=== PATIENT | female | born 1975 | race Caucasian/White ===

== ENCOUNTER 2021-12-06 09:22 | Outpatient (CLI) | payer OTHER, SELFPAY ==
[2021-12-06 12:26] LABS: Absolute Lymphocyte Count 2.43 X10^3/uL (0.83-4.51); Absolute Neutrophil Count 4.7 X10^3/uL (2.0-7.7); Basophil# 0.05 X10^3/uL; Basophil% 0.6 % (0-1); Eosinophil# 0.06 X10^3/uL; Eosinophils% 0.8 % (0-5); Hematocrit 37.9 % (37-47); Hemoglobin 11.6 g/dL (12.0-15.0); Lymphocyte # 2.43 X10^3/ul (0.83-4.51); Lymphocyte % 30.7 % (19-41); Mean Corp Hgb Conc 30.6 g/dL (32-36); Mean Corpuscular Hgb 24.7 pg (27.0-32.0); Mean Corpuscular Volume 80.6 fL (81-99); Mean Platelet Vol. 10.8 fl (6.2-12.0); Monocyte# 0.71 X10^3/uL; NRBC Flagged by Analyzer 0 % (0-5); Neutrophil # 4.65 X10^3/uL (2.7-7.7); Neutrophil % 58.6 % (47-70); Platelet Count 369 K/mm3 (150-450); RBC Distribution Width CV 16.4 % (11.6-14.6); RBC Distribution Width SD 47.9 fl (35.1-43.9); White Blood Count 7.9 K/mm3 (4.4-11.0)
[2021-12-06 12:42] LABS: ALB/GLOB Ratio 0.8 RATIO (0.9-2.4); AST(SGOT) 15 U/L (15-37); Alanine Aminotransfer ALT/SGPT 22 U/L (13-56); Albumin, Serum 3.3 g/dL (3.2-5.0); Alkaline Phosphatase 93 U/L (45-117); Anion Gap 5 (5-15); BUN 10 mg/dL (7-18); BUN/Creat Ratio 13.9 RATIO (10-20); Calcium,Total 8.8 mg/dL (8.5-10.1); Chloride 109 mmol/L (98-107); Cholesterol 163 mg/dL (200); Creatinine, Serum 0.72 mg/dL (0.55-1.02); EST Glomerular Filtration Rate 93 mL/min (>60); Est Glom Filt Rate - Afr Amer 112 mL/min (>60); Glucose 100 mg/dL (74-106); High Density Lipoprotein 52 mg/dL; Potassium 4.3 mmol/L (3.5-5.1); Protein, Total 7.3 g/dL (6.4-8.2); Sodium Level 139 mmol/L (136-145); Triglycerides 100 mg/dL; Very Low Density Lipoprotein 20 mg/dL (5-40)
[2021-12-09 11:20] LABS: Ferritin 5 ng/mL (8-252); Iron 18 ug/dL (50-170); Iron Binding Capacity,Total 411 ug/dL (250-450)
== END 2021-12-06 23:59 | disposition short-term general hospital (02) ==
LOC: BIMLAB 09:23
PROVIDERS: PCP Internal Medicine; Referring Provider Internal Medicine; Visit Provider Internal Medicine
DX: Z00.00 Encounter for general adult medical examination without abnormal findings (principal); D64.9 Anemia, unspecified
CPT/HCPCS: 36415; 80053; 80061; 82728; 83540; 83550; 85025

== ENCOUNTER 2022-02-26 11:00 | Outpatient (CLI) | payer OTHER, SELFPAY ==
[2022-03-05 12:33] LABS: HPV APTIMA, High Risk Negative (Negative)
== END 2022-02-26 23:59 | disposition home or self-care (01) ==
LOC: LABSPEC 02-27 11:01
PROVIDERS: PCP Internal Medicine; Referring Provider Nurse Practitioner Women's Health; Visit Provider Nurse Practitioner Women's Health
DX: Z12.4 Encounter for screening for malignant neoplasm of cervix (principal)
CPT/HCPCS: 87624; 88175; G0145

== ENCOUNTER → 2022-03-11 | Outpatient (CLI) | payer OTHER, SELFPAY ==
--- NOTE | 2022-03-11 12:22 | US_ITS ---
EXAM: US pelvis, transabdominal and transvaginal.. HISTORY: menorrhagia -- dysmerrhea TECHNIQUE: US Transvaginal Non-OB COMPARISON: None. LIMITATIONS: None. UTERUS Size: Within normal limits Nabothian cysts. Orientation: Normal. Endometrial echo: Normal. Masses: At least 2 fibroids measuring up to 3.8 cm. RIGHT OVARY not visualized. LEFT OVARY Size: Within normal limits. Masses: 14 mm cystic structure, likely prominent follicle. Vascularity: Normal Doppler signal. ADNEXA: No masses or fluid collections. CUL-DE-SAC: No masses or fluid collections. OTHER: None. CONCLUSION: 1. Fibroids measuring up to 3.8 cm. 2. Normal morphologic and vascular appearance of the left ovary. 3. Right ovary not visualized. Electronically Signed: Brendon Groves MD at 4:57 EDT , US/Pelvic (Non )
--- NOTE | 2022-03-11 12:22 | US_ITS ---
EXAM: US pelvis, transabdominal and transvaginal.. HISTORY: menorrhagia -- dysmerrhea TECHNIQUE: US Transvaginal Non-OB COMPARISON: None. LIMITATIONS: None. UTERUS Size: Within normal limits Nabothian cysts. Orientation: Normal. Endometrial echo: Normal. Masses: At least 2 fibroids measuring up to 3.8 cm. RIGHT OVARY not visualized. LEFT OVARY Size: Within normal limits. Masses: 14 mm cystic structure, likely prominent follicle. Vascularity: Normal Doppler signal. ADNEXA: No masses or fluid collections. CUL-DE-SAC: No masses or fluid collections. OTHER: None. CONCLUSION: 1. Fibroids measuring up to 3.8 cm. 2. Normal morphologic and vascular appearance of the left ovary. 3. Right ovary not visualized. Electronically Signed: Brendon Groves MD at 4:57 EDT , US/Transvaginal Non-
--- NOTE | 2022-03-11 12:22 | BI_ITS ---
MAMMOGRAPHY - BILATERAL SCREENING REASON FOR EXAM: Female, 46 years old. Routine annual screening examination. PERTINENT HISTORY: Aunt with breast cancer. TECHNIQUE: Digital bilateral breast mando (3D mammographic acquisition) in the CC and MLO projections. 2-D mediolateral oblique (MLO) and craniocaudad (CC) views of both breasts were obtained. CAD: Full Field Digital Mammography with Computer Added Detection was performed. COMPARISON: Comparison is made with prior outside examination dated 09/21/2018. FINDINGS: Breast Composition: The breasts are heterogeneously dense, which may obscure small masses. There are no dominant masses or suspicious calcifications. Stable asymmetry of breast tissue with more breast tissue is seen in the upper outer quadrant of the right breast as compared to the left side. No other significant abnormalities are identified. There has been no significant change since the prior study. BI/SCRN MAMM (CAD)W/MANDO BILAT IMPRESSION: Stable bilateral screening mammogram. Yearly follow-up mammogram recommended. (A) ASSESSMENT CATEGORY: BIRADS Category 2: Benign. A letter regarding these results will be sent to the patient by the facility within 30 days. Approximately 10% of breast cancers are not detected by mammography. A normal mammogram should not delay biopsy of a clinically suspicious abnormality. [id number] Electronically Signed: Artis Panda MD at 10:03 EDT ,
== END | disposition home or self-care (01) ==
PROVIDERS: PCP Internal Medicine; Referring Provider Nurse Practitioner Women's Health; Visit Provider Nurse Practitioner Women's Health
DX: N92.0 Excessive and frequent menstruation with regular cycle (principal); N94.6 Dysmenorrhea, unspecified; Z12.31 Encounter for screening mammogram for malignant neoplasm of breast
CPT/HCPCS: 76830; 76856; 77063; 77067

== ENCOUNTER → 2022-03-14 | Outpatient (CLI) | payer OTHER, SELFPAY ==
[2022-03-14 10:47] LABS: Bacteria 0 SEEN /hpf (None Seen); Mucous, Urine 0 SEEN /hpf (<or=2+); Red Blood Cells-Urine 0 SEEN /hpf (0-5)
[2022-03-14 10:56] LABS: Color, Urine Yellow (Yellow); Glucose, Dipstick Normal (Normal); Ketone-Dipstick Negative (Negative); Leukocyte Esterase-Dipstick 25 /ul (Negative); Nitrite-Dipstick Positive (Negative); Occult Blood-Urine Negative /ul (Negative); Protein-Dipstick Negative (Negative); Urine Clarity Clear (Clear); Urine Urobilinogen 4 mg/dl (Normal)
[2022-03-14 10:59] LABS: Urine Bilirubin Dipstick 3 mg/dL (Negative)
[2022-03-14 11:02] LABS: Squamous Epithelial Cells - UA 0-5 SEEN /hpf (5-10); White Blood Cells 0-5 SEEN /hpf (0-5)
== END | disposition home or self-care (01) ==
LOC: LABSPEC 10:36
PROVIDERS: PCP Internal Medicine; Visit Provider Physician Assistant
DX: N39.0 Urinary tract infection, site not specified (principal)
CPT/HCPCS: 81001; 87086; 87088

== ENCOUNTER 2022-03-15 22:42 | Emergency (ER) | payer OTHER, SELFPAY ==
[2022-03-15 22:43] VITALS: BP 192/103; PULSE 89; RESP 16; TEMP 36.6; O2SAT 97; BMI 31.9
[2022-03-15 22:45] VITALS: BP 192/103; PULSE 89; RESP 16; TEMP 36.6; O2SAT 97
[2022-03-15 23:32] LABS: Mucous, Urine 0 SEEN /hpf (<or=2+)
--- NOTE | 2022-03-15 23:49 | EDS_ITS ---
HPI HPI - Female History of Present Illness Chief Complaint: Flank Pain Narrative Narrative: 46-year-old female presenting with left flank pain. She states she was treated for UTI starting Thursday. She had urinary urgency and frequency. She now has left flank pain. She has a history of kidney stone in the past. No fever or chills. Patient does admit that she started having diarrhea starting today. No black or bloody stools. Patient is currently on Keflex. PFSH PFS Medical History Anemia Asthma Colon cancer screening Dysuria Seasonal allergies Urinary frequency Home Medications immune booster PO 12/06/21 [History Last Taken Unknown] loratadine 10 mg tablet 10 mg PO DAILY 12/06/21 [History Last Taken Unknown] melatonin 5 mg capsule mg PO 12/06/21 [History Last Taken Unknown] multivitamin 1 tab PO DAILY 12/06/21 [History Last Taken Unknown] valerian root 445 mg capsule 445 mg PO QHS PRN 12/06/21 [History Last Taken Unknown] ferrous sulfate 325 mg (65 mg iron) tablet 325 mg PO DAILY #90 tab 12/09/21 [Rx Last Taken Unknown] levonorgestrel 0.15 mg-ethinyl estradiol 0.03 mg tablet 1 tab PO DAILY #56 tab 02/26/22 [Rx Last Taken Unknown] tranexamic acid 650 mg tablet 1,300 mg PO TID #60 tab 02/26/22 [Rx Last Taken Unknown] ciprofloxacin HCl 500 mg tablet 500 mg PO BID #10 tab 03/14/22 [Rx Last Taken Unknown] ondansetron 4 mg PO Q8H PRN #10 tab 03/16/22 [Rx Last Taken Unknown] ondansetron 4 mg PO Q8H PRN #14 tab 03/16/22 [Rx Last Taken Unknown] oxycodone-acetaminophen [Percocet] 1 tab PO Q6H PRN 3 Days #14 tab 03/16/22 [Rx Last Taken Unknown] sulfamethoxazole-trimethoprim [Bactrim DS] 1 tab PO BID #28 tab 03/16/22 [Rx Last Taken Unknown] Allergy/AdvReac Type Severity Reaction Status Date / Time codeine AdvReac Severe fatigue Verified 03/15/22 22:45 Family History Father Cancer throat Hypertension Hyperlipemia Melanoma CVA (cerebral vascular accident) Aunt Breast cancer Surgical History S/P LEEP (loop electrosurgical excision procedure) Social History household members: spouse current occupational status: employed current occupation: [employer] Smoking Status: Former smoker Tobacco: How many years used: 15 alcohol intake: current alcohol intake frequency: holidays/special occasions only Alcohol type: wine substance use type: does not use diet: low carbohydrate what type of physical activity do you participate in: walking frequency: 1-2 times per week seatbelt use: always do you feel safe at home: Yes additional social history: - Christopher OLGUIN ED Constitutional Constitutional ED: Denies chills or fever(s) Eyes Eyes: Denies blurry vision ENT ENT ED: Denies rhinorrhea or sore throat Cardiovascular Cardiovascular: Denies chest pain or palpitations Respiratory/Chest Respiratory/Chest: Denies cough or dyspnea Gastrointestinal Gastrointestinal: Reports abdominal pain, diarrhea, nausea and vomiting Genitourinary Genitourinary ED: Reports urinary frequency and other Details: Urinary urgency Musculoskeletal Musculoskeletal: Reports other Details: Left flank pain ; Denies myalgias Integumentary Denies Abrasions or rash Neurologic Neurologic: Denies headache(s) or weakness Psychiatric Psychiatric: Denies anxiety or depression EXAM Physical Exam Const Vital Signs: 03/15/22 22:43 03/15/22 22:45 Temperature 97.8 F 97.8 F Temperature Source Temporal Temporal Pulse Rate 89 89 Respiratory Rate 16 16 Blood Pressure 192/103 H 192/103 H Blood Pressure Mean 132 132 Pulse Ox 97 97 Oxygen Delivery Method Room Air Room Air Positive well nourished General Appearance ED: NAD; Negative for pallor HEENT Denies moist mucous membranes Negative for trauma Eyes Negative for PERRL or EOMs intact bilaterally Chest Wall inspection of chest normal and palpation of chest normal Resp normal respiratory effort and clear to auscultation bilaterally Cardio regular rate and regular rhythm GI Palpation: tender LLQ Back/Spine General Back: CVA tenderness left Neuro oriented x3 Sensorium / Orientation: alert Psych mental status grossly normal Skin no rashes or lesions noted General Skin Exam: Negative for jaundice or pallor MDM MDM MDM Narrative Medical decision making narrative: Patient's urinalysis consistent with infection with positive nitrites. There is also 2+ bacteria. Patient given a dose of Rocephin IV. Urine culture sent. CBC shows no leukocytosis. Hemoglobin hematocrit are stable. Electrolytes are normal. Creatinine slightly increased at 1.12. Patient improved with morphine, Zofran. CT of the abdomen pelvis without contrast shows 4 mm left UVJ stone. Given patient's normal lab work and history of stones I believe she safe for follow-up outpatient with urology. I will start her on Bactrim x14 days. She is given oxycodone and Zofran for home. She is given return precautions. Impression: 1. Pyelonephritis 2. 4 mm left ureteral stone 3. Hematuria 4. Nausea Lab Data Labs: Laboratory Results - last 24 hr 03/15/22 03/16/22 03/16/22 23:19 00:37 00:37 WBC 8.8 RBC 4.49 Hgb 11.3 L Hct 36.3 L MCV 80.8 L MCH 25.2 L MCHC 31.1 L RDW Std Deviation 58.2 H RDW Coeff of Adria 19.8 H Plt Count 270 MPV 10.2 Immature Gran % (Auto) 0.300 Neut % (Auto) 75.8 H Lymph % (Auto) 15.5 L Claiborne % (Auto) 7.6 Eos % (Auto) 0.2 Baso % (Auto) 0.6 Absolute Neuts (auto) 6.7 Absolute Lymphs (auto) 1.36 Nucleated RBC % 0 Sodium 139 Potassium 3.8 Chloride 111 H Carbon Dioxide 22.0 Anion Gap 6 BUN 14 Creatinine 1.12 H Estim Creat Clear Calc 58.13 Est GFR (MDRD) Af Amer 67 Est GFR (MDRD) Non-Af 55 L BUN/Creatinine Ratio 12.5 Glucose 128 H Calcium 8.5 Urine Color Gretchen Urine Clarity Clear Urine pH 6.0 Ur Specific Fancy Gap 1.025 Urine Protein 30 H Urine Glucose (UA) Normal Urine Ketones Negative Urine Occult Blood 50 H Urine Nitrite Positive H Urine Bilirubin 6 H Urine Urobilinogen 8 H Ur Leukocyte Esterase Negative Urine RBC 0-5 SEEN Urine WBC 0-5 SEEN Ur Squamous Epith Cells 5-10 SEEN Urine Bacteria 2+ Urine Mucus 0 SEEN Radiography Diagnostic Testing: Clinical Impression(s) from Imaging Studies Abdomen/Pelvis CT 03/16/22 23:48 IMPRESSION: 4 mm calculus in the left ureterovesicular junction causing mild upstream left hydroureter. Electronically Signed: Moises Campos MD at 0:23 EDT Reading Location ID and State: [facility] / [place] Tel , Service support , Discharge Plan Triage Chief Complaint: Flank Pain ED Provider: Delano Dawson Dx/Rx/DC Orders Instructions: ED Pyelonephritis, Female (Adult), ED Kidney Stone w/ Colic Prescriptions: New sulfamethoxazole-trimethoprim [Bactrim DS] 800-160 mg tablet 1 tab PO BID Qty: 28 RF: 0 oxycodone-acetaminophen [Percocet] 5-325 mg tablet 1 tab PO Q6H PRN (Reason: pain) 3 Days Qty: 14 RF: 0 ondansetron 4 mg tablet,disintegrating 4 mg PO Q8H PRN (Reason: nausea and vomiting) Qty: 10 RF: 0 ondansetron 4 mg tablet,disintegrating 4 mg PO Q8H PRN (Reason: nausea and vomiting) Qty: 14 RF: 0 No Action multivitamin Tablet 1 tab PO DAILY RF: 0 immune booster PO RF: 0 loratadine [Allergy Relief (loratadine)] 10 mg tablet 10 mg PO DAILY RF: 0 valerian root 445 mg capsule 445 mg PO QHS PRNRF: 0 melatonin 5 mg capsule PO RF: 0 levonorgestrel-ethinyl estrad [Altavera (28)] 0.15-0.03 mg tablet 1 tab PO DAILY Qty: 56 RF: 0 tranexamic acid [Lysteda] 650 mg tablet 1,300 mg PO TID Qty: 60 RF: 2 ferrous sulfate 325 mg (65 mg iron) tablet 325 mg PO DAILY Qty: 90 RF: 2 ciprofloxacin HCl 500 mg tablet 500 mg PO BID Qty: 10 RF: 0 Primary Care Provider: J Carlos Cooper Referrals: J Carlos Cooper MD [Primary Care Provider] - Nathalia Nolen MD [STAFF PHYSICIAN] - As soon as possible Disposition Disposition: Home, Self Care
[2022-03-15 23:57] LABS: Color, Urine Amber (Yellow); Glucose, Dipstick Normal (Normal); Ketone-Dipstick Negative (Negative); Leukocyte Esterase-Dipstick Negative /ul (Negative); Nitrite-Dipstick Positive (Negative); Occult Blood-Urine 50 /ul (Negative); Protein-Dipstick 30 mg/dl (Negative); Specific Gravity, Urine 1.025 (1.002-1.030); Urine Clarity Clear (Clear); Urine Urobilinogen 8 mg/dl (Normal)
[2022-03-15] MEDS: Morphine 4 MG/ML Syringe IV (23:57)
[2022-03-15] MEDS: Ondansetron 4 MG/2 ML Vial IV (23:57)
[2022-03-15] MEDS: Ketorolac 15 MG/ML Vial IV (23:57)
[2022-03-16 00:01] LABS: Urine Bilirubin Dipstick 6 mg/dL (Negative)
[2022-03-16 00:09] LABS: Bacteria 2+ /hpf (None Seen); Red Blood Cells-Urine 0-5 SEEN /hpf (0-5); Squamous Epithelial Cells - UA 5-10 SEEN /hpf (5-10); White Blood Cells 0-5 SEEN /hpf (0-5)
[2022-03-16 00:43] LABS: Absolute Lymphocyte Count 1.36 X10^3/uL (0.83-4.51); Absolute Neutrophil Count 6.7 X10^3/uL (2.0-7.7); Basophil# 0.05 X10^3/uL; Basophil% 0.6 % (0-1); Eosinophil# 0.02 X10^3/uL; Eosinophils% 0.2 % (0-5); Hematocrit 36.3 % (37-47); Hemoglobin 11.3 g/dL (12.0-15.0); Lymphocyte # 1.36 X10^3/ul (0.83-4.51); Lymphocyte % 15.5 % (19-41); Mean Corp Hgb Conc 31.1 g/dL (32-36); Mean Corpuscular Hgb 25.2 pg (27.0-32.0); Mean Corpuscular Volume 80.8 fL (81-99); Mean Platelet Vol. 10.2 fl (6.2-12.0); Monocyte# 0.67 X10^3/uL; Monocyte% 7.6 % (0-10); NRBC Flagged by Analyzer 0 % (0-5); Neutrophil # 6.65 X10^3/uL (2.7-7.7); Neutrophil % 75.8 % (47-70); Platelet Count 270 K/mm3 (150-450); RBC Distribution Width CV 19.8 % (11.6-14.6); RBC Distribution Width SD 58.2 fl (35.1-43.9); Red Blood Count 4.49 M/mm3 (4.2-5.4); White Blood Count 8.8 K/mm3 (4.4-11.0)
[2022-03-16] MEDS: Ceftriaxone 1 GM/50 ML BAG IV (00:49)
[2022-03-16 01:08] LABS: Anion Gap 6 (5-15); BUN 14 mg/dL (7-18); BUN/Creat Ratio 12.5 RATIO (10-20); Calcium,Total 8.5 mg/dL (8.5-10.1); Chloride 111 mmol/L (98-107); Creatinine, Serum 1.12 mg/dL (0.55-1.02); EST Glomerular Filtration Rate 55 mL/min (>60); Est Glom Filt Rate - Afr Amer 67 mL/min (>60); Estimated Creatinine Clearance 58.13 ml/min; Glucose 128 mg/dL (74-106); Potassium 3.8 mmol/L (3.5-5.1); Sodium Level 139 mmol/L (136-145)
[2022-03-16 01:41] VITALS: PULSE 74; RESP 17; O2SAT 97
[2022-03-16] MEDS: oxyCODONE 5 MG Tablet PO (01:48)
--- NOTE | 2022-03-16 23:48 | CT_ITS ---
STUDY: CT ABDOMEN AND PELVIS WITHOUT CONTRAST REASON FOR EXAM: Female, 46 years old. Kidney Stone RADIATION DOSAGE (If Supplied By Facility): CTDIvol = ( 13.91 ) mGy, DLP = ( 680.94 ) mGycm TECHNIQUE: Transaxial images were obtained from the dome of the diaphragm to the symphysis pubis without oral contrast, and without intravenous contrast. Sagittal and coronal images were reconstructed. Individualized dose optimization techniques were used for this CT. COMPARISON: Pelvic ultrasound from 03/11/2022. FINDINGS: The visualized lung bases are unremarkable. The visualized portions of the heart are within normal limits. Normal liver. Normal gallbladder and extrahepatic biliary system. Normal spleen. Normal pancreas. Normal bilateral adrenal glands. Normal right kidney. 4 mm calculus at the left ureterovesicular junction causing mild upstream left hydroureter and calyceal dilatation. Normal visualized stomach. Normal small intestine. Normal colon. The appendix is visualized and appears normal. Normal abdominal aorta. Normal inferior vena cava. Normal retroperitoneum. Normal urinary bladder. The uterus is enlarged and lobulated consistent with leiomyomatous uterus. Normal abdominal wall. Normal osseous structures. CT/Abdomen/Pelvis without Cont IMPRESSION: 4 mm calculus in the left ureterovesicular junction causing mild upstream left hydroureter. Electronically Signed: Moises Campos MD at 0:23 EDT ,
== END 2022-03-16 01:51 | disposition home or self-care (01) ==
PROVIDERS: Emergency Provider Student in an Organized Health Care Education/Training Program; PCP Internal Medicine; Visit Provider Student in an Organized Health Care Education/Training Program
DX: N20.1 Calculus of ureter (principal); R31.9 Hematuria, unspecified; R11.0 Nausea; Z87.891 Personal history of nicotine dependence
CPT/HCPCS: 74176; 80048; 81001; 85025; 87086; 96365; 96375; 99284; A4216; J2405

== ENCOUNTER → 2022-05-13 | Outpatient (CLI) | payer OTHER, SELFPAY ==
--- NOTE | 2022-05-13 16:30 | EMB_PTH ---
PATIENT: DAKOTA HILL LOC: [facility] U#:[id number] AGE/SX: 46/F ROOM: RE05/13/[address]: Dr. Codi Solares MD : 1975 BED: DIS: 05/13/2022 SPEC #: [id number] RECD: 05/13/22 16:51 STATUS: MAURO REJuana #: [id number] AJIT: 05/13/22 16:[address]: Codi Solares DEPT: SURGICAL PATHOLOGY RECD BY: Cr Noel ENTERED: 05/14/22 07:50 SP TYPE: ENDOM BX/C JAZ DR: Dr. J Carlos Cooper MD Tissues: Endometrium, NOS Procedures: Surgery Specimen Level IV HEADER OPERATION: Endometrial biopsy PRE-OP DIAGNOSIS: Abnormal uterine bleeding TISSUE SUBMITTED: Endometrial lining MICROSCOPIC DIAGNOSIS Endometrial biopsy: Proliferative endometrium. SJ:nancie 05/15/2022 MICROSCOPIC DESCRIPTION Slides are reviewed. GROSS DESCRIPTION Received is one container labeled with the patient's name and not further designated. The specimen consists of multiple fragments of hemorrhagic soft tissue that in aggregate measure 2.5 x 2 x 0.2 cm. The specimen is totally submitted in one cassette. / AMILCAR:nancie 05/14/2022 TC:4 CPT: 22780
== END | disposition home or self-care (01) ==
PROVIDERS: PCP Internal Medicine; Visit Provider Obstetrics & Gynecology
DX: N93.9 Abnormal uterine and vaginal bleeding, unspecified (principal)
CPT/HCPCS: 88305

== ENCOUNTER → 2022-05-27 | Outpatient (CLI) | payer OTHER, SELFPAY ==
[2022-05-27 15:31] LABS: Anion Gap 5 (5-15); BUN 11 mg/dL (7-18); BUN/Creat Ratio 17.7 RATIO (10-20); Calcium,Total 8.9 mg/dL (8.5-10.1); Chloride 103 mmol/L (98-107); Creatinine, Serum 0.62 mg/dL (0.55-1.02); EST Glomerular Filtration Rate 109 mL/min (>60); Est Glom Filt Rate - Afr Amer 132 mL/min (>60); Glucose 94 mg/dL (74-106); Potassium 3.9 mmol/L (3.5-5.1); Sodium Level 137 mmol/L (136-145)
== END | disposition home or self-care (01) ==
LOC: BIMLAB 11:44
PROVIDERS: PCP Internal Medicine; Referring Provider Internal Medicine; Visit Provider Internal Medicine
DX: I10 Essential (primary) hypertension (principal)
CPT/HCPCS: 36415; 80048

== ENCOUNTER → 2022-06-30 | Outpatient (CLI) | payer OTHER, SELFPAY ==
[2022-06-30 15:18] LABS: Anion Gap 6 (5-15); BUN 9 mg/dL (7-18); BUN/Creat Ratio 13.4 RATIO (10-20); Calcium,Total 8.7 mg/dL (8.5-10.1); Chloride 105 mmol/L (98-107); Creatinine, Serum 0.67 mg/dL (0.55-1.02); EST Glomerular Filtration Rate 99 mL/min (>60); Est Glom Filt Rate - Afr Amer 120 mL/min (>60); Glucose 92 mg/dL (74-106); Potassium 3.8 mmol/L (3.5-5.1); Sodium Level 138 mmol/L (136-145)
== END | disposition home or self-care (01) ==
LOC: BIMLAB 11:39
PROVIDERS: PCP Internal Medicine; Referring Provider Internal Medicine; Visit Provider Internal Medicine
DX: I10 Essential (primary) hypertension (principal)
CPT/HCPCS: 36415; 80048

== ENCOUNTER → 2022-08-13 | Outpatient (CLI) | payer OTHER, SELFPAY ==
--- NOTE | 2022-08-13 10:01 | US_ITS ---
STUDY: ULTRASOUND OF THE FEMALE PELVIS - COMPLETE REASON FOR EXAM: Female, 47 years old. Uterine fibroid LMP: 06/06/2022. TECHNIQUE: Transabdominal and Transvaginal TECHNICAL QUALITY: Adequate. COMPARISON: Comparison is made with prior study dated 03/11/2022. FINDINGS: The uterus is anteverted and is in a midline position. The uterus measures 10.8 cm x 6.2 cm x 7.3 cm. Normal uterine cervix. The endometrium measures 6.1 mm in thickness, and is hyperechoic. There is no demonstrated endometrial mass. 2 fibroids are seen in the fundal portion of the uterus. The larger fibroid measures 2.7 cm x 3.4 cm x 2.5 cm. I.U.D. - The patient does not have an I.U.D. The right ovary is non-visualized. The left ovary is non-visualized. There is no fluid in the cul-de-sac. The pre void volume of the bladder was 353 ml. US/Pelvic (Non ) IMPRESSION: Essentially stable fibroid uterus. Electronically Signed: Artis Panda MD at 13:52 EDT ,
--- NOTE | 2022-08-13 10:01 | US_ITS ---
STUDY: ULTRASOUND OF THE FEMALE PELVIS - COMPLETE REASON FOR EXAM: Female, 47 years old. Uterine fibroid LMP: 06/06/2022. TECHNIQUE: Transabdominal and Transvaginal TECHNICAL QUALITY: Adequate. COMPARISON: Comparison is made with prior study dated 03/11/2022. FINDINGS: The uterus is anteverted and is in a midline position. The uterus measures 10.8 cm x 6.2 cm x 7.3 cm. Normal uterine cervix. The endometrium measures 6.1 mm in thickness, and is hyperechoic. There is no demonstrated endometrial mass. 2 fibroids are seen in the fundal portion of the uterus. The larger fibroid measures 2.7 cm x 3.4 cm x 2.5 cm. I.U.D. - The patient does not have an I.U.D. The right ovary is non-visualized. The left ovary is non-visualized. There is no fluid in the cul-de-sac. The pre void volume of the bladder was 353 ml. US/Transvaginal Non- IMPRESSION: Essentially stable fibroid uterus. Electronically Signed: Artis Panda MD at 13:52 EDT ,
== END | disposition home or self-care (01) ==
PROVIDERS: PCP Internal Medicine; Visit Provider Obstetrics & Gynecology
DX: D25.9 Leiomyoma of uterus, unspecified (principal)
CPT/HCPCS: 76830; 76856

== ENCOUNTER → 2022-08-29 | Outpatient (CLI) | payer OTHER, SELFPAY ==
[2022-08-29 12:42] LABS: Absolute Lymphocyte Count 2.18 X10^3/uL (0.83-4.51); Absolute Neutrophil Count 2.9 X10^3/uL (2.0-7.7); Basophil# 0.05 X10^3/uL; Basophil% 0.9 % (0-1); Eosinophil# 0.09 X10^3/uL; Eosinophils% 1.6 % (0-5); Hemoglobin 14.4 g/dL (12.0-15.0); Lymphocyte # 2.18 X10^3/ul (0.83-4.51); Lymphocyte % 37.7 % (19-41); Mean Corp Hgb Conc 32.7 g/dL (32-36); Mean Corpuscular Hgb 29.4 pg (27.0-32.0); Mean Corpuscular Volume 89.8 fL (81-99); Mean Platelet Vol. 11.8 fl (6.2-12.0); Monocyte# 0.57 X10^3/uL; Monocyte% 9.9 % (0-10); NRBC Flagged by Analyzer 0 % (0-5); Neutrophil # 2.88 X10^3/uL (2.7-7.7); Neutrophil % 49.7 % (47-70); Platelet Count 243 K/mm3 (150-450); RBC Distribution Width CV 14.6 % (11.6-14.6); RBC Distribution Width SD 48.6 fl (35.1-43.9); White Blood Count 5.8 K/mm3 (4.4-11.0)
== END | disposition home or self-care (01) ==
LOC: BIMLAB 08:56
PROVIDERS: PCP Internal Medicine; Referring Provider Internal Medicine; Visit Provider Internal Medicine
DX: I10 Essential (primary) hypertension (principal); D64.9 Anemia, unspecified
CPT/HCPCS: 36415; 85025

== ENCOUNTER 2022-10-28 08:09 | Day surgery (SDC) | payer OTHER, SELFPAY ==
--- NOTE | 2022-10-22 15:59 | EKG12_ITS ---
Test Reason : PRE OP Blood Pressure : / mmHG Vent. Rate : 079 BPM Atrial Rate : 079 BPM P-R Int : 152 ms QRS Dur : 080 ms QT Int : 384 ms P-R-T Axes : 055 081 030 degrees QTc Int : 440 ms Sinus rhythm with frequent Premature ventricular complexes Otherwise normal ECG Confirmed by DAVID DUNAWAY, FANNIE ([id number]), index editor CARLOS COOMBS ([id number]) on 10/28/2022 10:58:42 AM Referred By: Codi Solares Confirmed By:EAMON HERNANDEZ MD
[2022-10-22 17:12] LABS: Absolute Lymphocyte Count 3.09 X10^3/uL (0.83-4.51); Absolute Neutrophil Count 5.1 X10^3/uL (2.0-7.7); Basophil# 0.04 X10^3/uL; Basophil% 0.4 % (0-1); Eosinophil# 0.07 X10^3/uL; Eosinophils% 0.8 % (0-5); Hematocrit 44.2 % (37-47); Hemoglobin 14.3 g/dL (12.0-15.0); Lymphocyte # 3.09 X10^3/ul (0.83-4.51); Lymphocyte % 33.9 % (19-41); Mean Corp Hgb Conc 32.4 g/dL (32-36); Mean Corpuscular Volume 89.7 fL (81-99); Mean Platelet Vol. 11.5 fl (6.2-12.0); Monocyte# 0.81 X10^3/uL; Monocyte% 8.9 % (0-10); NRBC Flagged by Analyzer 0 % (0-5); Neutrophil # 5.07 X10^3/uL (2.7-7.7); Neutrophil % 55.7 % (47-70); Platelet Count 269 K/mm3 (150-450); RBC Distribution Width SD 45.6 fl (35.1-43.9); Red Blood Count 4.93 M/mm3 (4.2-5.4); White Blood Count 9.1 K/mm3 (4.4-11.0)
[2022-10-22 17:54] LABS: ALB/GLOB Ratio 0.9 RATIO (0.9-2.4); AST(SGOT) 20 U/L (15-37); Alanine Aminotransfer ALT/SGPT 24 U/L (13-56); Albumin, Serum 3.4 g/dL (3.2-5.0); Alkaline Phosphatase 63 U/L (45-117); Anion Gap 5 (5-15); BUN 13 mg/dL (7-18); BUN/Creat Ratio 17.9 RATIO (10-20); Chloride 103 mmol/L (98-107); Creatinine, Serum 0.72 mg/dL (0.55-1.02); EST Glomerular Filtration Rate 91 mL/min (>60); Est Glom Filt Rate - Afr Amer 110 mL/min (>60); Globulin 3.9 g/dL (2.2-4.2); Glucose 98 mg/dL (74-106); Potassium 4.1 mmol/L (3.5-5.1); Protein, Total 7.3 g/dL (6.4-8.2); Sodium Level 138 mmol/L (136-145)
[2022-10-22 18:04] LABS: Magnesium 2.3 mg/dL (1.6-2.6)
[2022-10-28] VITALS (10 sets, daily range): BP systolic 88–161; BP diastolic 62–89; PULSE 53–92; RESP 12–18; TEMP 36.1–37.2; O2SAT 90–100; BMI 31.7
[2022-10-28 08:54] LABS: Internal QC Validated? YES +Cl - CLEAR BKGD; Pregnancy, Urine Negative Negative
[2022-10-28] MEDS: Lactated Ringers 1,000 ML 40 ML IV ×2 (09:05→12:15)
[2022-10-28] MEDS: dexAMETHasone 10 MG/ML Vial 8 MG IV (09:05)
[2022-10-28] MEDS: Enoxaparin 40 MG/0.4 ML Syringe SC (09:10)
[2022-10-28] MEDS: Gabapentin 600 MG Tablet PO (09:12)
[2022-10-28] MEDS: Phenazopyridine 95 MG Tablet 190 MG PO (09:13)
[2022-10-28] MEDS: Acetaminophen 500 MG Tablet 1000 MG PO ×2 (09:13→15:36)
[2022-10-28] MEDS: Scopolamine 1mg/72hr Patch 1 PATCH TD (09:13)
[2022-10-28] MEDS: Celecoxib 200 MG Capsule 400 MG PO (09:13)
[2022-10-28] MEDS: Magnesium 1 GM over 15 mins IV (09:13)
--- NOTE | 2022-10-28 10:20 | HYST_PTH ---
PATIENT: DAKOTA HILL [place] [facility] [id number] AGE/SX: 47/F ROOM: RE10/28/[address]: Dr. Codi Solares MD : 1975 BED: DIS: 10/28/2022 SPEC #: [id number] RECD: 10/28/22 14:55 STATUS: MAURO REJuana #: [id number] AJIT: 10/28/22 10:[address]: Codi Solares DEPT: SURGICAL PATHOLOGY RECD BY: Cr Noel ENTERED: 10/29/22 09:38 SP TYPE: HYSTERECT OTHR DR: Dr. J Carlos Cooper MD Tissues: Uterus, NOS Procedures: Surgery Specimen Level V HEADER OPERATION: KEITH CHANDLER, salpingectomy PRE-OP DIAGNOSIS: Fibroids, menorrhagia TISSUE SUBMITTED: Cervix, uterus and bilateral fallopian tubes MICROSCOPIC DIAGNOSIS Uterus, hysterectomy: Cervix ? nabothian cysts and minimal chronic inflammation. Endometrium ? proliferative endometrium. Myometrium ? leiomyomas and adenomyosis. Right and left fallopian tubes - benign paratubal cysts. AM:nancie 10/30/2022 MICROSCOPIC DESCRIPTION Slides are reviewed. GROSS DESCRIPTION Received in fixative is one container labeled with the patient's name and designated uterus, cervix and bilateral fallopian tubes. The specimen consists of a fragmented hysterectomy specimen consisting of uterus with cervix and two pieces, one attached fallopian tube, larger piece of uterus including fundus and one detached fallopian tube. The uterus with cervix weighs in aggregate 280 gm. One half of the cervix anterior and posterior could not be oriented. The lower uterine segment measures 7.5 x 5.5 x 3 cm. The endocervical canal in this portion measures 3.5 cm in length. The endocervical mucosa is unremarkable. Sections of the lower uterine cavity in this portion measures 3 cm in length. The larger portion of the uterus with attached cervix measures 10.5 x 8 x 7 cm. In this piece of uterus is partly disrupted. The endocervical mucosa is unremarkable. The endometrial cavity is compressed and measures 7 cm in length and 4 cm in diameter. The endometrium is pack, glistening without any mass lesion and measures <0.1 cm in thickness. Sections of the uterus reveal multiple intramural, submucosal and subserosal nodular masses. The largest submucosal intramural nodular mass measures 6 cm in greatest dimension. The fallopian tube attached to the uterus measures 6 cm in length and 0.6 cm in diameter. The fimbrial end is identified. Sections reveal unremarkable cut surfaces. The detached fallopian tube measures 7.5 cm in length and 0.5 cm in diameter. The fimbrial end is not identified in this fallopian tube. The fallopian tube is dilated at the fimbrial end and shows a cyst filled with clear fluid measuring 1 cm in greatest dimension. Sections of the rest of the fallopian tube reveal unremarkable cut surfaces. Respite Worker sections are submitted in 12 cassettes as follows: 1 & 2 - cervix, 3-7 - uterine wall, 8 - largest nodular mass, 9 - second largest nodular mass, 10 - smaller nodular masses, 11 - attached fallopian tube with fimbrial end, 12 - detached fallopian tube without fimbrial end. / AMILCAR:nancie 10/29/2022 TC: 1 CPT: 06671
--- NOTE | 2022-10-28 10:49 | HP.PCM_ITS ---
History and Physical [facility] [address] [place] [address] OFFICE VISIT Date of Service:? 10/13/22 MR#: [id number] Acct: [id number] Name:DAKOTA HUTCHINS Rep #: [id number] : 1975 ? ? Provider: Dr. Codi Solares MD Age/Sex:? 47/F ? ? [place] [facility] [place]: [place]igned Intake Vital Signs ? 09/02/2214:04 10/13/2211:52 10/13/2211:59 Height 5 ft 6 in 5 ft 6 in 5 ft 6 in Weight: ? ? 201 lb BMI ? ? 32.4 BP ? ? 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 Is patient in pain?: No Allergies codeine Adverse Reaction (Severe, Verified 08/29/22 08:24) fatigue Medications immune booster PO 12/06/21 [History Confirmed 10/13/22] loratadine 10 mg tablet (Allergy Relief (loratadine)) 10 mg PO DAILY 12/06/21 [History Confirmed 10/13/22] melatonin 5 mg capsule mg PO 12/06/21 [History Confirmed 10/13/22] multivitamin 1 tab PO DAILY 12/06/21 [History Confirmed 10/13/22] valerian root 445 mg capsule 445 mg PO QHS PRN 12/06/21 [History Confirmed 10/13/22] ondansetron 4 mg disintegrating tablet 4 mg PO Q8H PRN nausea and vomiting #10 tabs 03/16/22 [Rx Confirmed 10/13/22] oarucdav-vzefsg-uoyzwtri 300-1-0.5 mg(AM)/elagolix 300 mg(PM) capsules (Oriahnn) See Rx Instructions PO .COMPLEX 08/18/22 [History Confirmed 10/13/22] ferrous sulfate 325 mg (65 mg iron) tablet 325 mg PO DAILY #90 tabs 08/29/22 [Rx Confirmed 10/13/22] triamterene 37.5 mg-hydrochlorothiazide 25 mg tablet 1 tab PO QAM #90 tabs 08/29/22 [Rx Confirmed 10/13/22] Is last menstrual period known: No Post menopausal: No Patient : No : No PFSH Medical History?(Updated 10/13/22 @ 12:[address] Codi Solares MD) Anemia Asthma Colon cancer screening Dysuria Hypertension Obesity (BMI 30.0-34.9) Seasonal allergies Urinary frequency Surgical History? S/P LEEP (loop electrosurgical excision procedure) Family History? Father Cancer ?? ? throat Hypertension Hyperlipemia Melanoma CVA (cerebral vascular accident)Aunt Breast cancer Social History? household members:? spouse current occupational status:? employed current occupation:? [employer] Smoking Status:? Former smoker Tobacco: How many years used:? 15 alcohol intake:? current alcohol intake frequency: holidays/special occasions only Alcohol type: wine substance use type:? does not use diet:? low carbohydrate what type of physical activity do you participate in:? walking frequency:? 1-2 times per week seatbelt use:? always do you feel safe at home:? Yes additional social history:? - Christopher GUO Details: DAKOTA HILL is a 47 year old who presents for proep visit planning hysterectomy due to AUB and fibroids failed oriahnn. US findings: The uterus measures 10.8 cm x 6.2 cm x 7.3 cm.? Normal uterine cervix.? The endometrium measures 6.1 mm in thickness, and is hyperechoic.? There is no demonstrated endometrial mass.? 2 fibroids are seen in the fundal portion of the uterus. The larger fibroid measures 2.7 cm x 3.4 cm x 2.5 cm. EMB : nl this past summer Female Reproductive History Menopausal Symptoms: No hot flashes, No night sweats, No difficulty concentrating and No change in libido History ? ? ? 2 ? Elective abortions ? Hx Para ? ? ? 2 ? Spontaneous abortions ? Hx # Term Pregnancies ? Ectopic pregnancies ? Hx # Pregnancies ? Multiple births ? # of living children ? ? ? 2 Past Pregnancies Del. Date Name GA/Weeks Outcome Route Bth Weight Infant Gen Labor Lgth Anesthesia [facility] Provider FOB Unknown Aundrea? ? 1990 ? Unknown Jess? ? 1993 ? ROS Const Constitutional: Denies fatigue, night sweats, weight gain or weight loss ENT ENT: Reports system reviewed and no additional complaints, except as documented Cardio Card: Denies chest pain Resp Resp: Denies cough or dyspnea GI GI: Reports as per HPI; Denies constipation, nausea or vomiting : Reports as per HPI; Denies hot flashes, nipple discharge, vaginal discharge, vaginal dryness, vaginal odor or vaginal pruritus Musc Musc: Denies arthralgias, back pain or muscle weakness Skin Skin/Breast: Denies alopecia, change in hair, dry skin, breast mass, breast pain, breast skin changes or nipple discharge Neuro Neuro: Reports system reviewed and no additional complaints, except as documented Psych Psych: Reports system reviewed and no additional complaints, except as documented; Denies change in libido or difficulty concentrating Endo Endo: Denies cold intolerance, excessive sweating, heat intolerance or polydipsia Parker/Lymph Hematologic/Lymphatic: Denies easy bleeding, Denies easy bruising and Denies lymphadenopathy Exam Const General: cooperative, healthy appearing, comfortable, no acute distress and well developed Orientation: alert [facility] Head: normal to inspection and normocephalic Ears: hearing grossly normal bilaterally and external ears normal Nose: external nose normal and nares normal Face and sinus: normal facial exam Neck Neck: normal visual inspection and no lymphadenopathy Thyroid: thyroid normal Chest Chest palpation & inspection: normal inspection of the chest Resp Effort & Inspection: normal respiratory effort Musc Other: gross motor intact no deficits, full bilateral strength Skin General: no rashes or lesions noted Neuro General: patient alert, patient awake, moves all extremities and no focal motor deficits Motor: muscle tone normal throughout Extrem General: normal to inspection and no pedal edema Psych Appearance: grossly normal Mental Status: mental status grossly normal Affect: normal affect Speech and Movement: speech and movement normal Coding Level of Care Code No Charge Diagnoses Uterine fibroid? D25.9 Menorrhagia with regular cycle? N92.0 Abnormal Pap smear of cervix? R87.619 Assessment and Plan Assessment and Plan (1) Uterine fibroid: ?Status:?Acute ?Comment: multiple largest 3.8 cm.? plan Oriahnn, fu in 3 months, marginal decrease in size of fibroids, patient wishes to proceed with LAVHBS. (2) Menorrhagia with regular cycle: ?Status:?Acute ?Comment: US, failed lysteda.? has fibroids. nl emb. oriann and ultimately proceed with hysterectomy. recommend LAVHBS. (3) Abnormal Pap smear of cervix: ?Status:?Acute ?Comment: continue paps until 2030 Plan After discussing the patient's diagnosis and treatment plan options, patient wishes to proceed with surgical management.? I have discussed with the patient the risks, benefits, and alternatives of the procedure which include but are not limited to risks of anesthesia, bleeding, infection, possible damage to bowel, bladder, or surrounding vasculature which could lead to additional surgery to evaluate any complications.? Patient agrees to procedure and wishes to proceed.? ACOG/uptodate references given for additional information regarding procedure.? UPDATE- I have seen the patient and performed any clinically relevant updates to the history and physical exam. Codi Solares MD
--- NOTE | 2022-10-28 10:50 | PCM.OPRPT ---
Problems Associated Problem List Diagnoses (1) Menorrhagia with regular cycle: (2) Uterine fibroid: Report of Operation Date of Procedure: 10/28/22 Pre-Operative Diagnosis: AUB Post-Operative Diagnosis: same Surgery/Procedure Performed:: LAVHBS Description of Surgical Findings:: enlarged fibroid uterus Surgeon: Codi Solares hand wrapper operator: Yanira Orozco Type of Anesthesia: General Specimen's removed: uterus, tubes Drains: sheriff Estimated Blood Loss (mL): 150 Fluids Replaced: crystalloid Description of Procedure: Patient received preoperative antibiotics and SCDs were on preoperatively. Patient was taken back to the operating room and placed in the dorsal lithotomy position. General anesthesia was induced and patient was prepped and draped in normal sterile fashion. Uterine manipulator was placed inside the uterus and Sheriff catheter placed in the bladder. The umbilicus was grasped with towel clamps and an intraumbilical incision was made after injecting with quarter percent Marcaine and a Veress needle entered into the abdomen confirmed to be intra-abdominal with a low opening pressure. Abdomen was insufflated with CO2 gas and the Veress needle removed and the 5 mm trocar was placed under direct visualization without complication. Right and left lower quadrants were transilluminated and injected with quarter percent Marcaine and 5 mm ports placed under direct visualization. Pelvis was well visualized see operative findings for additional information. Bilateral fallopian tubes were identified and transected with the LigaSure device across the mesosalpinx to the level of the utero-ovarian ligament which was also transected with the LigaSure device. The broad ligament was opened up by transecting the round ligament bilaterally and skeletonizing the uterine vessels bilaterally and creating a bladder flap using the LigaSure device. The uterine arteries were transected bilaterally with good visualization of the bladder and the ureters were seen to be inferior lateral to the operative area. Attention was then paid to the vaginal portion of the procedure and the cervix was grasped with Brady clamps and circumferentially injected with dilute vasopressin. A circumferential incision was made and the vaginal mucosa was mobilized off posteriorly and the cul-de-sac entered into sharply and a longneck speculum placed. The anterior cul-de-sac was then identified and entered into sharply. The uterosacral ligaments were clamped cut and suture ligated with 0 Monocryl bilaterally followed by the cardinal ligaments which were clamped cut and suture ligated bilaterally with 0 Monocryl. right pedicle suture broke on the initial tie down but two additional sutures were sewn over the area for hemostasis. The uterus serially descended and was removed without difficulty. Pelvic sidewall pedicles were checked and noted to have excellent hemostasis. posterior peritoneum was reapproximated using the 2-0 vicyl. The vaginal mucosa was reapproximated incorporating the posterior peritoneum. This was reapproximated using 0 Vicryl crhenn-ox-crkij sutures. Excellent hemostasis was noted. The pelvis and cul-de-sac were well visualized and no significant active bleeding noted. Pressure was taken down and the areas visualized and noted of excellent hemostasis. All ports were removed under direct visualization without complication and the abdomen was desufflated of air. The instruments were removed from the abdomen and the vaginal sweep was negative. Port sites on the abdomen were closed with 4-0 Monocryl interrupted sutures and Steri's and windows were applied. She was awoken and taken recovery in stable condition. Grafts/Implants Used: none Complications none Admit VTE Documentation VTE Present on Admission: No VTE Mechan Device Prophylaxis: SCD's VTE Pharm Prophylaxis ordered?: Yes Procedures Urinary/Genital 52xxx-59xxx: [id number] LAVH+BS/O <250gr Uterus
[2022-10-28] MEDS: Cefazolin 2 GM in 0.9% Normal Saline 100 ML IV (10:56)
--- NOTE | 2022-10-28 11:15 | DCINST_ITS ---
Discharge Instructions Diet Discharge Diet: No restrictions Activity May resume sexual activity in: 6 weeks Weight Bearing Status: Full weight bearing Dressing / Incision Call your doctor if your incision/area has: Continuous Slow Oozing, Sudden Increased Bleeding, Increased Pain/ Swelling, Increased Redness and Foul Smelling Discharge Call your doctor if you observe: Fever of 101 or Higher, Using more than 1 pad per hour, Shortness of breath, Chest pain and Uncontrolled pain Suture Line Care: Avoid Pulling/Pushing and Avoid Pinching/Bending Remove Dressing in: 1 week (if present) Cleanse incision/area with: Soap & Water and Keep Dressing Clean & Dry Follow Up Care Please Follow Up With: Codi Solares MD When: Call to make an appointment with your doctor for a postop visit in 2 and 6 weeks. Test Results: Test results from this visit will be discussed in further detail at your follow- up appointment, if applicable. Discharge Plan Admission Attending Provider: Codi Solares Primary Care Provider: J Carlos Cooper Discharge Orders/Prescriptions Prescriptions: New oxycodone-acetaminophen [Percocet] 5-325 mg tablet 1 tab PO Q6H PRN (Reason: pain) 7 Days Qty: 20 0RF naproxen [naproxen] 500 mg tablet 500 mg PO BID PRN PRN (Reason: Pain) Qty: 30 1RF No Action multivitamin Tablet 1 tab PO DAILY loratadine [Allergy Relief (loratadine)] 10 mg tablet 10 mg PO DAILY valerian root 445 mg capsule 445 mg PO QHS PRN (Reason: Sleep) melatonin 5 mg capsule 5 mg PO QHS Oriahnn 300-1-0.5mg(AM) /300 mg(PM) capsule, sequential See Rx Instructions PO .COMPLEX Rx Instructions: take 1 YELLOW (multi-ingredient) capsule each morning; take 1 BLUE (elagolix) capsule each evening PO triamterene-hydrochlorothiazid 37.5-25 mg tablet 1 tab PO QAM Qty: 90 2RF ferrous sulfate 325 mg (65 mg iron) tablet 325 mg PO DAILY Qty: 90 2RF ondansetron 4 mg tablet,disintegrating 4 mg PO Q8H PRN (Reason: nausea and vomiting) Qty: 10 0RF alprazolam [Xanax] 2 mg tablet 2 mg PO ONCE Qty: 3 0RF Rx Instructions: take 1 hour prior to procedure Other Ambulatory Orders: 12 Lead EKG (Routine) Timeframe: 20221022 Location: None Selected Ordered By: Dr. Codi Solares Referrals / Follow Up: J Carlos Cooper MD [Primary Care Provider] - Disposition Disposition (needs filled in before D/C Order can be placed): Home, Self Care
[2022-10-28 11:20] LABS: Bedside Glucose 78 mg/dL (74-106)
[2022-10-28] MEDS: Vasopressin 20 UNITS/ML Vial (11:24)
[2022-10-28] MEDS: Ondansetron 4 MG/2 ML Vial IV (12:55)
[2022-10-28] MEDS: Bupivacaine 0.25% 30 ML Vial (12:56)
[2022-10-28 14:01] LABS: Bedside Glucose 150 mg/dL (74-106)
[2022-10-28] MEDS: Ketorolac 30 MG/ML Syringe IV (14:26)
[2022-10-28] MEDS: Lactated Ringers 1,000 ML 70 ML IV (14:40)
[2022-10-28 15:58] LABS: Hematocrit 43.9 % (37-47); Hemoglobin 14.6 g/dL (12.0-15.0); Mean Corp Hgb Conc 33.3 g/dL (32-36); Mean Corpuscular Hgb 29.9 pg (27.0-32.0); Mean Corpuscular Volume 89.8 fL (81-99); Mean Platelet Vol. 10.9 fl (6.2-12.0); Platelet Count 249 K/mm3 (150-450); RBC Distribution Width CV 13.6 % (11.6-14.6); RBC Distribution Width SD 44.8 fl (35.1-43.9); Red Blood Count 4.89 M/mm3 (4.2-5.4); White Blood Count 12.5 K/mm3 (4.4-11.0)
== END 2022-10-28 19:19 | disposition home or self-care (01) ==
LOC: SDC 08:12 → AC 08:14
PROVIDERS: Anesthesiology; PCP Internal Medicine; Referring Provider Obstetrics & Gynecology; Visit Provider Obstetrics & Gynecology
PROC: 0UT9FZZ Resection of Uterus, Via Natural or Artificial Opening With Percutaneous Endoscopic Assistance (ICD-10-PCS; CPT 58554; principal; 2022-10-28 09:55)
DX: N88.8 Other specified noninflammatory disorders of cervix uteri (principal); D25.9 Leiomyoma of uterus, unspecified; N83.8 Other noninflammatory disorders of ovary, fallopian tube and broad ligament; I10 Essential (primary) hypertension; Z87.891 Personal history of nicotine dependence; Z79.899 Other long term (current) drug therapy
CPT/HCPCS: 58554; 36415; 80053; 81025; 82962; 83735; 85025; 85027; 86850; 86900; 86901; 88307; 93005; J7120; J2405; J3475

== ENCOUNTER → 2023-01-01 | Outpatient (CLI) | payer OTHER, SELFPAY | END | disposition home or self-care (01) | LOC: OPBI 07:11 | PROVIDERS: PCP Internal Medicine; Visit Provider Obstetrics & Gynecology | DX: Z00.00 Encounter for general adult medical examination without abnormal findings (principal) ==

== ENCOUNTER → 2023-03-02 | Outpatient (CLI) | payer OTHER, SELFPAY ==
[2023-03-02 12:23] LABS: Anion Gap 6 (5-15); BUN 16 mg/dL (7-18); Calcium,Total 9.2 mg/dL (8.5-10.1); Chloride 104 mmol/L (98-107); Cholesterol 169 mg/dL (200); EST Glomerular Filtration Rate 81 mL/min (>60); Est Glom Filt Rate - Afr Amer 98 mL/min (>60); Glucose 106 mg/dL (74-106); High Density Lipoprotein 52 mg/dL; Potassium 4.4 mmol/L (3.5-5.1); Sodium Level 139 mmol/L (136-145); Triglycerides 81 mg/dL; Very Low Density Lipoprotein 16 mg/dL (5-40)
== END | disposition home or self-care (01) ==
LOC: BIMLAB 08:02
PROVIDERS: PCP Internal Medicine; Visit Provider Internal Medicine
DX: I10 Essential (primary) hypertension (principal)
CPT/HCPCS: 36415; 80048; 80061

== ENCOUNTER → 2023-03-09 | Outpatient (CLI) | payer OTHER, SELFPAY ==
[2023-03-09 12:19] LABS: Absolute Lymphocyte Count 2.16 X10^3/uL (0.83-4.51); Absolute Neutrophil Count 3.5 X10^3/uL (2.0-7.7); Basophil# 0.04 X10^3/uL; Basophil% 0.6 % (0-1); Eosinophil# 0.06 X10^3/uL; Eosinophils% 0.9 % (0-5); Hematocrit 46.3 % (37-47); Hemoglobin 15.2 g/dL (12.0-15.0); Lymphocyte # 2.16 X10^3/ul (0.83-4.51); Lymphocyte % 34.2 % (19-41); Mean Corp Hgb Conc 32.8 g/dL (32-36); Mean Corpuscular Hgb 30.2 pg (27.0-32.0); Mean Corpuscular Volume 91.9 fL (81-99); Mean Platelet Vol. 12.1 fl (6.2-12.0); Monocyte# 0.54 X10^3/uL; Monocyte% 8.5 % (0-10); NRBC Flagged by Analyzer 0 % (0-5); Neutrophil # 3.51 X10^3/uL (2.7-7.7); Neutrophil % 55.6 % (47-70); Platelet Count 250 K/mm3 (150-450); RBC Distribution Width CV 13.9 % (11.6-14.6); RBC Distribution Width SD 47.1 fl (35.1-43.9); Red Blood Count 5.04 M/mm3 (4.2-5.4); White Blood Count 6.3 K/mm3 (4.4-11.0)
[2023-03-09 12:44] LABS: T4 Free Direct 1.25 ng/dL (0.76-1.46); Thyroid Stim Hormone (TSH) 1.06 uIU/mL (0.358-3.74)
== END | disposition home or self-care (01) ==
LOC: BIMLAB 08:54
PROVIDERS: PCP Internal Medicine; Visit Provider Internal Medicine
DX: D64.9 Anemia, unspecified (principal); I49.9 Cardiac arrhythmia, unspecified
CPT/HCPCS: 84439; 84443; 85025

== ENCOUNTER → 2023-05-28 | Outpatient (CLI) | payer OTHER, SELFPAY ==
--- NOTE | 2023-05-28 10:52 | ECHOD_ITS ---
Reason For Study: Arrhythmia Procedure This was a 2D Doppler, Color Flow transthoracic echocardiogram. Exam performed in department. Left Ventricle Normal LV size. Left ventricular systolic function is normal. The estimated ejection fraction is 55 %. Stage 1 diastolic dysfunction. No regional wall motion abnormalities noted. Right Ventricle Normal RV size. Normal systolic function. Atria Normal left atrium. Normal right atrium. Mitral Valve Normal mitral valve. Tricuspid Valve Normal tricuspid valve. Unable to estimate RV systolic pressure due to inadequate jet, pulmonary artery pressure probably normal. Aortic Valve Normal aortic valve. Trisinus/trileaflet aortic valve. Pulmonic Valve Normal pulmonic valve. Great Vessels Normal aortic root. The pulmonary artery is normal size. Normal inferior vena cava. Pericardium/Pleural No pericardial effusion. MMode/2D Measurements & Calculations LVIDd: 5.3 cm IVSd: 0.77 cm Ao root diam: 3.2 cm LVIDs: 4.0 cm LVPWd: 0.81 cm LA dimension: 3.2 cm RVDd: 3.4 cm FS: 24.2 % LAV(MOD-bp): 34.7 ml LVAd ap4: 29.6 cm2 SV(MOD-sp4): 48.8 ml LAV(MOD-bp) Indexed: 17.1 ml/m2 LVLd ap4: 8.0 cm LAV(MOD-sp2): 37.9 ml EDV(MOD-sp4): 90.8 ml LAV(MOD-sp4): 29.8 ml EDV(sp4-el): 93.3 ml LVAs ap4: 18.4 cm2 LVLs ap4: 6.6 cm ESV(MOD-sp4): 42.0 ml ESV(sp4-el): 43.3 ml EF(MOD-sp4): 53.8 % EF(sp4-el): 53.6 % SV(sp4-el): 50.1 ml LA A4 area: 13.6 cm2 RA A4 area: 12.2 cm2 Time Measurements MV dec time: 0.15 sec Doppler Measurements & Calculations MV E max manuel: 73.5 cm/sec Lat Peak E' Manuel: 10.9 cm/sec Med Peak E' Manuel: 8.9 cm/sec MV A max manuel: 82.6 cm/sec E/E' lat: 6.7 E/E' med: 8.2 MV E/A: 0.89 MV V2 max: 94.9 cm/sec MV P1/2t max manuel: 86.5 cm/sec Ao V2 max: 114.4 cm/sec MV max P.6 mmHg MV P1/2t: 53.9 msec Ao max P.2 mmHg MV V2 mean: 50.3 cm/sec Ao V2 mean: 79.1 cm/sec MV mean P.2 mmHg MV dec slope: 469.7 cm/sec2 Ao mean P.9 mmHg MV V2 VTI: 26.8 cm MVA(P1/2t): 4.1 cm2 Ao V2 VTI: 27.3 cm AV (velocity ratio): 0.66 LV V1 max: 74.6 cm/sec PA V2 max: 69.1 cm/sec LV V1 max P.2 mmHg PA V2 mean: 50.1 cm/sec LV V1 mean P.2 mmHg LV V1 mean: 51.6 cm/sec LV V1 VTI: 18.0 cm ECHO/Echo Complete Interpretation Summary Normal LV size. Left ventricular systolic function is normal. The estimated ejection fraction is 55 %. Stage 1 diastolic dysfunction. Structurally normal valves. Ordering Physician: Kevon Latham Referring Physician: J Carlos Cooper Performed By: Denzel Alvarez RCS
== END | disposition home or self-care (01) ==
LOC: CVS 10:51
PROVIDERS: PCP Internal Medicine; Referring Provider Internal Medicine Cardiovascular Disease; Visit Provider Internal Medicine Cardiovascular Disease
DX: I49.9 Cardiac arrhythmia, unspecified (principal)
CPT/HCPCS: 93225; 93226; 93306

== ENCOUNTER → 2023-06-10 | Outpatient (CLI) | payer OTHER, SELFPAY ==
[2023-06-10 12:48] LABS: Absolute Lymphocyte Count 2.16 X10^3/uL (0.83-4.51); Absolute Neutrophil Count 3.5 X10^3/uL (2.0-7.7); Basophil# 0.05 X10^3/uL; Basophil% 0.8 % (0-1); Eosinophil# 0.04 X10^3/uL; Eosinophils% 0.6 % (0-5); Hematocrit 45.3 % (37-47); Hemoglobin 14.7 g/dL (12.0-15.0); Lymphocyte # 2.16 X10^3/ul (0.83-4.51); Lymphocyte % 33.7 % (19-41); Mean Corp Hgb Conc 32.5 g/dL (32-36); Mean Corpuscular Hgb 30.4 pg (27.0-32.0); Mean Corpuscular Volume 93.6 fL (81-99); Mean Platelet Vol. 11.6 fl (6.2-12.0); Monocyte# 0.68 X10^3/uL; Monocyte% 10.6 % (0-10); NRBC Flagged by Analyzer 0 % (0-5); Neutrophil # 3.46 X10^3/uL (2.7-7.7); Platelet Count 241 K/mm3 (150-450); RBC Distribution Width CV 13.2 % (11.6-14.6); RBC Distribution Width SD 45.3 fl (35.1-43.9); Red Blood Count 4.84 M/mm3 (4.2-5.4); White Blood Count 6.4 K/mm3 (4.4-11.0)
[2023-06-10 13:03] LABS: Vitamin B12 478 pg/mL (211-911)
[2023-06-10 13:21] LABS: T4 Free Direct 1.19 ng/dL (0.76-1.46); Thyroid Stim Hormone (TSH) 0.86 uIU/mL (0.358-3.74)
== END | disposition home or self-care (01) ==
LOC: BIMLAB 09:09
PROVIDERS: PCP Internal Medicine; Referring Provider Internal Medicine; Visit Provider Internal Medicine
DX: D64.9 Anemia, unspecified (principal); F41.9 Anxiety disorder, unspecified; F32.A Depression, unspecified
CPT/HCPCS: 36415; 82607; 84439; 84443; 85025

== ENCOUNTER → 2024-04-04 | Outpatient (CLI) | payer OTHER, SELFPAY ==
[2024-04-04 12:41] LABS: Absolute Lymphocyte Count 2.33 X10^3/uL (0.83-4.51); Absolute Neutrophil Count 4.4 X10^3/uL (2.0-7.7); Basophil# 0.07 X10^3/uL; Basophil% 0.9 % (0-1); Eosinophil# 0.05 X10^3/uL; Eosinophils% 0.7 % (0-5); Hematocrit 44.2 % (37-47); Hemoglobin 14.2 g/dL (12.0-15.0); Lymphocyte # 2.33 X10^3/ul (0.83-4.51); Lymphocyte % 30.7 % (19-41); Mean Corp Hgb Conc 32.1 g/dL (32-36); Mean Corpuscular Hgb 29.4 pg (27.0-32.0); Mean Corpuscular Volume 91.5 fL (81-99); Mean Platelet Vol. 10.8 fl (6.2-12.0); Monocyte# 0.76 X10^3/uL; NRBC Flagged by Analyzer 0 % (0-5); Neutrophil # 4.35 X10^3/uL (2.7-7.7); Neutrophil % 57.4 % (47-70); Platelet Count 293 K/mm3 (150-450); RBC Distribution Width CV 13.4 % (11.6-14.6); RBC Distribution Width SD 45.3 fl (35.1-43.9); Red Blood Count 4.83 M/mm3 (4.2-5.4); White Blood Count 7.6 K/mm3 (4.4-11.0)
[2024-04-04 13:20] LABS: ALB/GLOB Ratio 0.9 RATIO (0.9-2.4); AST(SGOT) 12 U/L (15-37); Alanine Aminotransfer ALT/SGPT 21 U/L (13-56); Albumin, Serum 3.5 g/dL (3.2-5.0); Alkaline Phosphatase 84 U/L (45-117); Anion Gap 6 (5-15); BUN 11 mg/dL (7-18); Calcium,Total 9.1 mg/dL (8.5-10.1); Chloride 102 mmol/L (98-107); Cholesterol 158 mg/dL (200); Creatinine, Serum 0.78 mg/dL (0.55-1.02); EST Glomerular Filtration Rate 83 mL/min (>60); Est Glom Filt Rate - Afr Amer 100 mL/min (>60); Globulin 4.1 g/dL (2.2-4.2); Glucose 100 mg/dL (74-106); High Density Lipoprotein 63 mg/dL; Potassium 3.8 mmol/L (3.5-5.1); Protein, Total 7.6 g/dL (6.4-8.2); Sodium Level 138 mmol/L (136-145); Triglycerides 77 mg/dL; Very Low Density Lipoprotein 15 mg/dL (5-40)
== END | disposition home or self-care (01) ==
LOC: BIMLAB 08:29
PROVIDERS: PCP Internal Medicine; Visit Provider Internal Medicine
DX: Z00.00 Encounter for general adult medical examination without abnormal findings (principal)
CPT/HCPCS: 36415; 80053; 80061; 85025

== ENCOUNTER → 2025-03-22 | Outpatient (CLI) | payer OTHER, SELFPAY ==
[2025-03-22 16:57] LABS: Absolute Lymphocyte Count 2.44 X10^3/uL (0.83-4.51); Absolute Neutrophil Count 2.9 X10^3/uL (2.0-7.7); Basophil# 0.05 X10^3/uL; Basophil% 0.8 % (0-1); Eosinophil# 0.05 X10^3/uL; Eosinophils% 0.8 % (0-5); Hematocrit 43.2 % (37-47); Hemoglobin 14.6 g/dL (12.0-15.0); Lymphocyte # 2.44 X10^3/ul (0.83-4.51); Lymphocyte % 39.9 % (19-41); Mean Corp Hgb Conc 33.8 g/dL (32-36); Mean Corpuscular Volume 88.9 fL (81-99); Mean Platelet Vol. 10.4 fl (6.2-12.0); Monocyte# 0.68 X10^3/uL; Monocyte% 11.1 % (0-10); NRBC Flagged by Analyzer 0 % (0-5); Neutrophil # 2.87 X10^3/uL (2.7-7.7); Neutrophil % 47.1 % (47-70); Platelet Count 276 K/mm3 (150-450); RBC Distribution Width CV 13.2 % (11.6-14.6); RBC Distribution Width SD 43.5 fl (35.1-43.9); Red Blood Count 4.86 M/mm3 (4.2-5.4); White Blood Count 6.1 K/mm3 (4.4-11.0)
[2025-03-22 17:45] LABS: ALB/GLOB Ratio 1.3 RATIO (0.9-2.4); AST(SGOT) 24 U/L (<=31); Alanine Aminotransfer ALT/SGPT 24 U/L (<=34); Albumin, Serum 4.3 g/dL (3.5-5.0); Alkaline Phosphatase 85 U/L (35-104); Anion Gap 11 (5-15); BUN 14 mg/dL (4-19); BUN/Creat Ratio 17.6 RATIO (10-20); Calcium,Total 9.6 mg/dL (7.6-11.0); Carbon Dioxide 25.7 mmol/L (21.0-32.0); Chloride 100 mmol/L (98-108); Cholesterol 182 mg/dL (<=200); Creatinine, Serum 0.78 mg/dL (0.70-1.20); EST Glomerular Filtration Rate 92 (>60); Globulin 3.2 g/dL (2.2-4.2); Glucose 83 mg/dL (70-99); High Density Lipoprotein 68 mg/dL; Low Density Lipoprotein Calc. 99 mg/dL; Potassium 3.7 mmol/L (3.3-5.1); Protein, Total 7.4 g/dL (5.9-8.4); Sodium Level 137 mmol/L (133-145); Total Bilirubin 0.32 mg/dL (0.00-1.30); Triglycerides 74 mg/dL; Very Low Density Lipoprotein 15 mg/dL (5-40); cholesterol:hdl ratio screen 2.67
== END | disposition home or self-care (01) ==
LOC: BIMLAB 16:02
PROVIDERS: PCP Internal Medicine; Referring Provider Internal Medicine; Visit Provider Internal Medicine
DX: Z00.00 Encounter for general adult medical examination without abnormal findings (principal)
CPT/HCPCS: 36415; 80053; 80061; 85025

== ENCOUNTER → 2025-08-17 | Outpatient (CLI) | payer OTHER, SELFPAY ==
--- NOTE | 2025-08-17 07:15 | BI_ITS ---
EXAM: SCRN MAMM (CAD)W/MANDO BILAT DATE: 08/17/2025 CLINICAL HISTORY: F, Age 50 y/o , BREAST CANCER SCREENING Routine screening TECHNIQUE: Procedure Code: BISMWCADBTOM Modality: MG Procedure: SCRN MAMM (CAD)W/MANDO BILAT COMPARISON: Prior exam(s) dated 03/11/2022. FINDINGS: TISSUE DENSITY: There are scattered areas of fibroglandular density. Bilateral Breast Mammographic Findings: No significant masses, calcifications or other abnormalities are identified. No interval change BI/SCRN MAMM (CAD)W/MANDO BILAT IMPRESSION: Stable screening mammogram OVERALL FINAL ASSESSMENT BI-RADS 1: NEGATIVE. RECOMMENDATION: Routine annual follow-up in 1 Year Additional Recommendation none A letter with findings and recommendations will be mailed to the patient. Reading Location: [id number]
--- NOTE | 2025-08-17 07:15 | BI_ITS ---
EXAM: SCRN MAMM (CAD)W/MANDO BILAT DATE: 08/17/2025 CLINICAL HISTORY: F, Age 50 y/o , BREAST CANCER SCREENING Routine screening TECHNIQUE: Procedure Code: BISMWCADBTOM Modality: MG Procedure: SCRN MAMM (CAD)W/MANDO BILAT COMPARISON: Prior exam(s) dated 03/11/2022. FINDINGS: TISSUE DENSITY: There are scattered areas of fibroglandular density. Bilateral Breast Mammographic Findings: No significant masses, calcifications or other abnormalities are identified. No interval change BI/SCRN MAMM (CAD)W/MANDO BILAT IMPRESSION: Stable screening mammogram OVERALL FINAL ASSESSMENT BI-RADS 1: NEGATIVE. RECOMMENDATION: Routine annual follow-up in 1 Year Additional Recommendation none A letter with findings and recommendations will be mailed to the patient. Reading Location: [id number]
== END | disposition home or self-care (01) ==
PROVIDERS: PCP Internal Medicine; Referring Provider Internal Medicine; Visit Provider Internal Medicine
DX: Z12.31 Encounter for screening mammogram for malignant neoplasm of breast (principal)
CPT/HCPCS: 77063; 77067